=== PATIENT | male | born 1990 | race Caucasian/White ===

== ENCOUNTER 2017-02-12 07:42 | Emergency (ER) | payer SELFPAY ==
[~2017-02-12] VITALS: Ht 165.1 cm; Wt 110.0 kg
[~2017-02-12 07:42] MED LIST: AMOXICILLIN500 MG PO; AMOXIL500 MG OR; DENIES CURRENT MEDS; LOPRESSOR 550 MG/TAB PO; LOPRESSOR25 MG PO; NAPROSYN500 MG PO
[2017-02-12] MEDS ORDERED: AMLODIPINE5 MG PO (08:01)
[2017-02-12] MEDS ORDERED: ATORVASTATIN CA40 MG PO (08:02)
[2017-02-12] MEDS ORDERED: METOPROL TAR25 MG PO (08:02)
[2017-02-12 08:26] LABS: HEMATOCRIT 43.7 % (39.0-50.0); HEMOGLOBIN 14.9 g/dl (14.0-18.0); IMMATURE GRANULOCYTES 0.2 % (0.0-1.0); MEAN CELL VOLUME 84.4 fL CALC (80.0-100.0); MEAN CORPUSCULAR HGB 28.8 pG CALC (26.0-32.0); MEAN CORPUSCULAR HGB CONC 34.1 g/L CALC (32.0-36.0); NEUT# 8.74 thou/uL (1.82-7.42); RED BLOOD COUNT 5.18 mill/uL (4.70-6.10); RED CELL DISTRI WIDTH 12.8 % (11.5-15.5)
[2017-02-12 08:35] LABS: ALBUMIN 4.8 g/dL (3.2-5.0); ALKALINE PHOSPHATASE 107 u/l (38-126); ANION GAP 16 (6-22 (CALC)); BILIRUBIN, TOTAL 0.7 mg/dL (0.0-1.4); BUN 8 mg/dL (9-20); BUN/CREATININE RATIO 11 (12-20 (CALC)); CALCIUM 9.9 mg/dL (8.4-10.2); CARBON DIOXIDE 25 mmol/l (22-30); CHLORIDE 102 mmol/l (95-108); CREATININE 0.8 mg/dL (0.7-1.3); GFR > 60 ML/MIN (>=60 (CALC)); GFR FOR AFR.AMER. > 60 ML/MIN (>=60 (CALC)); GLUCOSE 112 mg/dL (75-110); POTASSIUM 3.8 mmol/l (3.5-5.1); SGOT/AST 19 u/l (17-59); SGPT/ALT 51 u/l (21-72); SODIUM 139 mmol/l (137-146); TOTAL PROTEIN 7.9 g/dL (6.3-8.2)
[2017-02-12 08:47] LABS: MYOGLOBIN 26 ng/mL (0 - 121)
[2017-02-12 09:07] LABS: BARBITURATES NEGATIVE (NEGATIVE); COCAINE NEGATIVE (NEGATIVE); METHADONE NEGATIVE (NEGATIVE); TETRAHYDROCANNABIONOL NEGATIVE (NEGATIVE); TRICYLIC ANTIDEPRESSANTS NEGATIVE (NEGATIVE)
[2017-02-12 09:08] LABS: OXCYCODONE NEGATIVE (NEGATIVE)
[2017-02-12 09:29] VITALS: BP 123/83
== END 2017-02-12 09:33 | disposition home or self-care (01) | DRG 310 ==
LOC: ED 07:42
PROVIDERS: Emergency Medicine
DX: R00.2 Palpitations (principal)